=== PATIENT | male | born 1960 | race Caucasian/White ===

== ENCOUNTER → 2018-09-29 | Outpatient (CLI) | payer OTHER ==
[~2018-09-29] MED LIST: CYMBALTA60 MG PO; DOXEPIN HCL10 MG PO; FLEXERIL PO; MEDROLDOSEPACK PO; MOBIC15 MG PO; NEURONTIN 300300 M1 PO; PERCOCET 10-321 EACH PO
--- NOTE | 2018-10-12 16:38 | PAINCON ---
[address] [address] PAIN MANAGEMENT CONSULTATION Name: SHAKIRA HICKS [facility]: [facility] CHELOCecilio LeonardoCiara#: [id number] Admission: 09/29/18 Attend Phys: Sandro Randall MD Discharge: Date of : 62 Report #: [id number] THIS REPORT FOR: //name// CC: Lana Randall DATE OF SERVICE: 09/29/2018 CHIEF COMPLAINT: Constant right hip and leg pain. HISTORY OF PRESENT ILLNESS: The patient is a 57-year-old gentleman who has been referred to the pain clinic for evaluation of chronic pain. The patient states that he has been seen in the pain clinic at [facility] in the past. He has undergone a number of procedures. He states that he has undergone epidural steroid injections. They no longer provide were helpful. He was told that he has some problems in the L5-S1 disk area. He states that he has two bulging disks as well as a herniated disk. He has been having pain and discomfort, which has been problematic over the last 8 years. He has undergone radiofrequency ablation in the lower back area. He continues to have pain and was referred to a surgeon. He states that the surgeon looked at his situation and did not recommend surgery at this juncture. He stated that the pain worsened, he could consider surgery. This was about 2 years ago that he had the visit with the surgeon. He has been told that he has spinal stenosis. Finds that gabapentin and Cymbalta seemed to be helpful. He has tried Flexeril in the past, but rarely uses it. He has tried Percocet rarely uses this medication. He continues to have pain and discomfort, which he describes as stabbing in his right hip and notes that the pain is worse when he is lifting and with certain other activities. Describes it is constant, burning, shooting momentarily sharp and stabbing. Rates it as a 3/10. He has discomfort in the anterior portions of his thigh and down into the calf portions bilaterally. There is some midline discomfort as well. ALLERGIES: No known drug allergies. MEDICATIONS: Gabapentin 300 mg t.i.d., Cymbalta 60 mg daily, Flexeril 10 mg p.r.n., Percocet 08/31/2005 p.r.n. PAST MEDICAL HISTORY: Joint disease/arthritis. PAST SURGICAL HISTORY: 1. The patient has had epidural steroid injections. 2. The patient has had radiofrequency lesioning of the low back area, L4-L5 and L5-S1. REVIEW OF SYSTEMS: Hearing loss/ringing in the ears, joint pain, back pain, [place] [address] PAIN MANAGEMENT CONSULTATION Name: COMERSHAKIRA Room: [facility] ELSA Pinzon#: [id number] Admission: 09/29/18 Attend Phys: Sandro Randall MD Discharge: Date of : 62 Report #: [id number] LABORATORY DATA: No laboratory values are available at the time of our interview. PAIN CLINIC ASSESSMENT/PQRS: 1. History of osteoarthritis. The patient has some arthritic changes in the lower portion of his back. He has not been treated for rheumatoid arthritis. 2. Height 5 feet 9 inches, weight 235 pounds, BMI is 34.8. 3. Vital signs: Blood pressure 153/95, heart rate 96, respiratory rate 18, room air saturation 93%, and temperature 98.8. 4. Pain intensity 02/05. 5. Fall history: The patient has not fallen in the last 3 months. 6. Blood thinner. The patient is not on a blood thinning medication. 7. Hypertension. The patient is not being treated for hypertension. 8. Opioid therapy. The patient is not receiving an opioid on a regular basis. 9. Risk assessment tool. 10. Functional assessment tool of . 11. Tobacco: The patient denies use of tobacco. 12. Alcohol: The patient denies use of alcoholic beverages on a regular basis. PHYSICAL EXAMINATION: GENERAL: The patient is a well-developed, well-nourished white male. Appears his stated age. He is alert and oriented x 3. Affect is appropriate. Speech is fluent. HEENT: Normocephalic, atraumatic. Extraocular eye muscles intact. Sclerae nonicteric. Mucous membranes are moist. NECK: With good range of motion without adenopathy or JVD. HEART: Regular rate. ABDOMEN: Nontender. Bowel sounds present. EXTREMITIES: Upper extremity muscle strength is judged to be 5/5 for the major muscle groups in the low back. The patient has pain and discomfort in the mid back area. He has pain and discomfort radiating around into the anterior portion of his thighs bilaterally. Also, has some pain on the lateral portion of his thigh. This is on the right side. MUSCULOSKELETAL: Without significant scoliosis, kyphosis or lordosis. The patient is able to go from a sitting to a standing position without assistance. He has tenderness in the midline area in the L4-L5 and L5-S1 paravertebral areas. Dixon sign is negative. The patient notes some increased pain and discomfort with movement in the low back area in the back. There is no step-off in the lumbar area. IMPRESSION: 1. Lumbar radiculopathy with history of spinal stenosis and grade 1 spondylolisthesis. 2. Bilateral L5-S1 foraminal stenosis. 3. Chronic pain. The patient has [place] [address] PAIN MANAGEMENT CONSULTATION Name: SHAKIRA HICKS Room: [facility] ELSA BassettFlor#: [id number] Admission: 09/29/18 Attend Phys: Sandro Randall MD Discharge: Date of : 62 Report #: [id number] RECOMMENDATIONS: We discussed treatment option with the patient. We fully reviewed the medications commonly used for treating chronic pain. The patient is not taking any nonsteroidal anti-inflammatory medications. We will consider the use of Mobic. We explained that gabapentin can be helpful in certain situations. Sometimes patients will not find an improvement until the gabapentin level has been of 1800 had been reached. We will slowly increase his gabapentin medication. We also described the use of tricyclic anti-inflammatory medications. They can be helpful in pain. We will consider the doxepin. The patient will take this medication at bedtime. Hopefully, this would help with sleep as well as with pain and discomfort. At this juncture, the patient declines additional injections given that he said the last injection only lasted for a couple of days. We will continue to try medication combinations to help calm/improve his painful condition. We would like to thank you for letting us participate in his care. We hope he continues to improve. <ELECTRONICALLY SIGNED> By: Sandro Randall MD 10/12/18 [id number]. Kian Randall MD /nt
== END ==
LOC: M.PC 02:50
DX: M54.16 Radiculopathy, lumbar region (principal); M48.061 Spinal stenosis, lumbar region without neurogenic claudication; G89.29 Other chronic pain

== ENCOUNTER → 2018-10-27 | Outpatient (CLI) | payer OTHER ==
--- NOTE | ~2018-10-27 | PAINCON ---
[address] [address] PAIN MANAGEMENT CONSULTATION Name: LORYRSHAKIRA Room: [facility] ELSA BassettFlor#: [id number] Admission: 10/27/18 Attend Phys: Sandro Randall MD Discharge: Date of : 62 Report #: [id number] THIS REPORT FOR: //name// CC: Lana Randall DATE OF SERVICE: 10/27/2018 CHIEF COMPLAINT: "Pain in the front of my leg is better with the gabapentin. I am still having some problems sleeping because my hip pain." HISTORY OF PRESENT ILLNESS: The patient is a 57-year-old gentleman who has been seen in the pain clinic because of right hip and leg pain. The patient states that he has noticed an improvement in his pain. He was having pain in the anterior portion of his leg in the upper thigh as well as in the calf area. Since use of gabapentin, he is noticing improvement in this pain and discomfort. Pain is most problematic at this juncture is that in his hips. Pain in the right hip is most problematic. He has difficulty lying on it. It keeps him from sleeping. Denies any trauma to this area. He only remembers falling from a roof about 20-25 years ago. He fractured his wrist at that time, but did not have any significant problems with his hip. He does try ibuprofen p.r.n. He has had no problems with the gabapentin. He feels that he is sleeping reasonably well with use of doxepin 10 mg at bedtime. He notes that if he sits with his hips, lower than his knees in a chair or so has difficulty getting up and moving. Must move slowly. He has pain and discomfort when he exits his car, oftentimes has to lift his leg out stand using his hands to brace himself and move somewhat before he is able to proceed with walking because of the pain and discomfort. ALLERGIES: No known drug allergies. CURRENT MEDICATIONS: Gabapentin 300 mg t.i.d., Cymbalta 60 mg, Flexeril 10 mg and Percocet 10/325 p.r.n. PAIN CLINIC ASSESSMENT/PQRS: 1. History of osteoarthritis. The patient has some arthritic changes in his low back area. He has not been treated for rheumatoid arthritis. 2. Height 5 feet 9 inches, weight 238 pounds. BMI is 35.2. 3. Vital Signs: Blood pressure 149/91, heart rate 75, respiratory rate 18, room air saturation 95%, temperature 98.5. 4. Pain intensity score 1/10 at this juncture. 5. Fall history: The patient has not fallen in the last 3 months. 6. Blood thinner. The patient is not on a blood thinning medication. 7. Hypertension. The patient is not being treated for hypertension. 8. Opiate therapy. The patient is not receiving opioid [place] [address] PAIN MANAGEMENT CONSULTATION Name: SHAKIRA HICKS Room: [facility] ELSA Pinzon#: [id number] Admission: 10/27/18 Attend Phys: Sandro Randall MD Discharge: Date of : 62 Report #: [id number] 9. Risk assessment, low risk for opioid medication. 10. Functional assessment tool . 11. Tobacco: The patient denies use of tobacco. 12. Alcohol. The patient denies use of alcoholic beverages on a regular basis. PHYSICAL EXAMINATION: GENERAL: The patient is a well-developed, well-nourished white male. Appears his stated age. He is alert and oriented x 3. His affect is appropriate. Speech is fluent. HEENT: Normocephalic, atraumatic. Extraocular eye muscles intact. Sclerae nonicteric. Mucous membranes are moist. NECK: Without adenopathy or JVD. HEART: Regular rate. ABDOMEN: Nontender. Bowel sounds present. EXTREMITIES: Upper extremity muscle strength is judged to be 5/5 for the major muscle groups. The patient has some pain and discomfort in the lower portion of his back. He notes some pain into the right hip area. Standing and sitting with internal and external rotation of his hip causes pain that radiates directly into the area of the groin and into the hip area. The patient also has some pain in the anterior portion of his right calf. Overall, this is better than it had been prior to taking his medications. MUSCULOSKELETAL: Without significant scoliosis, kyphosis or lordosis. Dixon sign is negative. The patient has no step-off in the lumbar area. IMPRESSION: 1. Lumbar radiculopathy with history of spinal stenosis and grade 1 anterolisthesis. 2. Bilateral L5-S1 foraminal stenosis. 3. Chronic pain. The patient has undergone epidural steroid injections. RECOMMENDATIONS: We discussed treatment options with the patient. He has noted some improvement with use of the gabapentin medication. He is not having any side effects or mental problems with focusing. He feels that the doxepin is helping with his sleep at night. He does not have any complications from that medication. He notes that there is pain and discomfort in his left hip, which is slight and more problematic in the right hip. He is unable to lie on his right hip at night. This awakens him because of the pain and discomfort. We will have the patient undergo an x-ray of his right hip to note the changes in this area. He will be given a Medrol Dosepak. He will take this medication for the alloted number of days. Hopefully, he will find it improvement. He will also try Mobic. He will monitor his stomach for GI upset. He will return to the pain clinic. If his pain continues to be problematic and does not resolve, we would consider [place] [address] PAIN MANAGEMENT CONSULTATION Name: SHAKIRA HICKS Room: [facility]#: [id number] Admission: 10/27/18 Attend Phys: Sandro Randall MD Discharge: Date of : 62 Report #: [id number] We would like to thank you for letting us participate in his care. We hope he continues to improve. By: [id number]. Kian Randall MD /nt
== END ==
LOC: M.RAD 03:44 → M.PC 03:44
DX: M16.11 Unilateral primary osteoarthritis, right hip (principal); M47.26 Other spondylosis with radiculopathy, lumbar region; M48.07 Spinal stenosis, lumbosacral region; G89.29 Other chronic pain; Z79.899 Other long term (current) drug therapy

== ENCOUNTER → 2018-11-18 | Outpatient (CLI) | payer OTHER | LOC: M.MRI 07:00 | DX: M47.26 Other spondylosis with radiculopathy, lumbar region (principal); M51.16 Intervertebral disc disorders with radiculopathy, lumbar region; M51.27 Other intervertebral disc displacement, lumbosacral region; M48.07 Spinal stenosis, lumbosacral region; M43.17 Spondylolisthesis, lumbosacral region ==

== ENCOUNTER → 2018-12-01 | Outpatient (CLI) | payer OTHER ==
--- NOTE | ~2018-12-01 | PAINCON ---
[address] [address] PAIN MANAGEMENT CONSULTATION Name: LORYRSHAKIRA Room: [facility] Danyelle.#: [id number] Admission: Attend Phys: Sandro Randall MD Discharge: Date of : 62 Report #: [id number] THIS REPORT FOR: //name// CC: Lana Randall DATE OF SERVICE: 12/01/2018 CHIEF COMPLAINT: Pain in the back and hips. FOLLOWUP HISTORY: The patient is a 57-year-old gentleman who has been followed in the pain clinic because of pain and discomfort involving his right side. He has had pain and discomfort in the right hip as well as some pain down into his leg. Notes that overall after taking the Medrol Dosepak as well as with less activity, he has noticed an improvement in his pain. He states that he had been seen in the past because of back problems. MRI showed that he had a fracture in the pars area in the lower portion of his back. He states that he had seen an orthopedic doctor in the past. He was told that unless things got significantly worse and he lost some bowel or bladder function then probably nothing would be needed to be done. He also had an x-ray of his hip on the right side. He is told that did not show very much. Overall, the right hip has been a little bit better lately, but he still does have pain when it rises to level of a 10. No sitting and standing can be problematic. ALLERGIES: No known drug allergies. CURRENT MEDICATIONS: Flexeril 10 mg t.i.d., Cymbalta 60 mg, gabapentin 2 tablets a.m. one-half tablet afternoon and 2 tablets at bedtime, 300 mg. PAIN CLINIC/PQRS: 1. History of osteoarthritis. The patient has some arthritic changes in his low back area. He has been told that he has some problems there. He has not been treated for rheumatoid arthritis. 2. Height 5 feet 9 inches, weight 238 pounds, BMI is 35. 3. Vital signs: Blood pressure ____, heart rate 89, respiratory rate 16, room air saturation 92%, and temperature 98.4. 4. Pain intensity 12/08. 5. Fall history: The patient has not fallen in the last 3 months. 6. Blood thinner. The patient is not on a blood thinning medication. 7. Hypertension. The patient is not being treated for hypertension. 8. Opioid therapy. The patient has received opioid medications from one source and would like to have our Pain Clinic continue to provide his opioid medication. 9. Risk assessment tool, low for opioid use. 10. Functional [place] [address] PAIN MANAGEMENT CONSULTATION Name: SHAKIRA HICKS Room: [facility] Jeromy#: [id number] Admission: Attend Phys: Sandro Randall MD Discharge: Date of : 62 Report #: [id number] 11. Tobacco: The patient denies use of tobacco. 12. Alcohol: The patient denies use of alcoholic beverages on a regular basis. PHYSICAL EXAMINATION: GENERAL: The patient is a well-developed, well-nourished white male. Appears his stated age. He is alert and oriented x 3. His affect is appropriate. Speech is fluent. HEENT: Normocephalic, atraumatic. Extraocular eye muscles intact. Sclerae nonicteric. Mucous membranes are moist. NECK: Without adenopathy or JVD. HEART: Regular rate. S1, S2. ABDOMEN: Nontender. Bowel sounds present. EXTREMITIES: Upper extremity muscle strength is judged to be 5/5 for the major muscle groups in the upper extremity. The patient has pain and discomfort in the lower portion of his back, which can wax and wane. It is not very problematic today. Also had some pain in his right hip. He is having less pain and discomfort. Does note some activities that he can note some increased pain and discomfort, which can radiate down into the posterior portion of his leg down into his calf and involving his foot on the right hand side. MUSCULOSKELETAL: Without significant scoliosis, kyphosis or lordosis. Dixon's sign negative. IMPRESSION: 1. Lumbar radiculopathy with history of spinal stenosis and grade 1 anterolisthesis. 2. L5 bilateral S1 foraminal stenosis. 3. Chronic pain. The patient has undergone epidural steroid injections in the past. X-ray of the lumbar spine dated 10/27/2018. AP pelvis, two views right hip findings, mild degenerative changes are present in the lower lumbar spine and hip joints. Spina bifida occulta is present at the L5 level. No evidence of fracture or subluxation or dislocation. Pelvis and hip are normal. 4. Chronic degenerative changes in the lumbar spine, right hip. No evidence of acute hip fracture or dislocation. 5. MRI of lumbar spine dated 11/18/2018. L1-L2 disk space narrowing and disk desiccation with circumferential disk bulging and posterior annular tear. There is effacement of the ventral thecal sac with narrowing of the central canal to 10 mm. There is bilateral neural foraminal narrowing, right greater than left with effacement of the undersurface of both exiting L1 nerve roots. Mild bilateral degenerative facet changes are present. 6. L2-L3 minimal foraminal disk bulging bilaterally and mild effacement of the ventral surface of the neural foramen. The facet joints are unremarkable. There is no central canal stenosis. 7. L3-L4 disk space narrowing and disk desiccation. There is circumferential disk bulging. Mild bilateral neural foraminal narrowing is present with mild effacement of the undersurface of both exiting the L3 nerve roots. The facet joints [place] [address] PAIN MANAGEMENT CONSULTATION Name: COMER,SHAKIRA LISANDRA [id number] Admission: Attend Phys: Sandro Randall MD Discharge: Date of : 62 Report #: [id number] 8. L4-L5 bilateral hypertrophic degenerative facet disease, right greater than left. There is disk space narrowing and disk desiccation. There is posterior disk bulging, which effaces the ventral thecal sac. Does not cause central canal stenosis. The facet arthrosis and disk bulging caused moderate right-sided neural foraminal stenosis with effacement of the anterior inferior and posterior inferior right L4 nerve root. 9. L5-S1, the disk space is narrowed and disk desiccation with chronic anterolisthesis measuring 7.5 mm. There is bilateral post-pars interarticular fractures without acute marrow edema. There is posterior disk bulging, which extends into the neural foramen bilaterally. There is severe bilateral neural foraminal stenosis with effacement and flattening of both L5 nerve roots. The paraspinous musculature is preserved. 10. 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 This in conjunction with posterior disk bulging causes severe bilateral neural foraminal stenosis and flattening/effacement of the L5 nerve roots. RECOMMENDATIONS: We discussed treatment options with the patient. The patient's MRI was reviewed with him. The findings of the x-ray of the pelvis were renewed with him. Again, we discussed the treatment options. At this juncture, the patient feels that things are 1/10. He feels that the oxycodone medication can be beneficial. He states he no longer goes to his doctor at ____ [facility]. He would like to have the medications of Percocet dispensed from our office. We will have the patient sign a contract with the [facility] indicating that he will get his medications from [facility]. The patient is in agreement with this. A script for his medications has been written. They are oxycodone 10/325 one p.o. every day. The patient did use doxepin in the past, but is no longer taking that medication. A script for gabapentin has been written. The patient has used meloxicam in the past, but is not taking that medication at this time. We would like to thank you for letting us participate in his care. We hope he continues to improve. By: [id number]. Kian Randall MD /nt
== END ==
LOC: M.PC 08:50
DX: M47.26 Other spondylosis with radiculopathy, lumbar region (principal); M51.16 Intervertebral disc disorders with radiculopathy, lumbar region; G89.29 Other chronic pain; M48.07 Spinal stenosis, lumbosacral region; M43.17 Spondylolisthesis, lumbosacral region

== ENCOUNTER → 2018-12-29 | Outpatient (CLI) | payer OTHER ==
[~2018-12-29] MED LIST changes: +CYMBALTA30 MG PO
--- NOTE | ~2018-12-29 | PAINCON ---
[address] [address] PAIN MANAGEMENT CONSULTATION Name: COMERSHAKIRA Room: [facility] ELSA PattersonCiara#: [id number] Admission: 12/29/18 Attend Phys: Sandro Randall MD Discharge: Date of : 62 Report #: [id number] THIS REPORT FOR: //name// CC: Lnaa Randall DATE OF SERVICE: 12/29/2018 CHIEF COMPLAINT: Here for medication and the pain is improved in my back and in the right hip. HISTORY: The patient is a 58-year-old gentleman who has been followed in the pain clinic because of pain and discomfort, which he has been experiencing. It primarily involved his right side. He had some discomfort which radiated down into his hip as well as along the lateral portion of his leg. Overall, he feels that the things have improved. He has found that the Medrol Dosepak was beneficial. He feels that his current medication regimen of Flexeril, Cymbalta and gabapentin are beneficial. Does take oxycodone only when necessary. Overall, he feels that things are going reasonably well. As you may recall, he had an MRI, which showed a fracture in the pars area of the lower portion of his back. Notes that the pain is worse in the past, rising to a level of 10. At this juncture, he rates his pain as a 1/10. ALLERGIES: No known drug allergies. MEDICATIONS: Flexeril 10 mg 1 p.o. t.i.d., Cymbalta 60 mg, gabapentin 2 tablets a.m. one tablet afternoon, 2 tablets at bedtime of 300 mg, oxycodone 10/325 one p.o. daily. PAIN CLINIC ASSESSMENT/PQRS: 1. History of osteoarthritis. The patient has some arthritic changes in his low back area. He has not been treated for rheumatoid arthritis. 2. Height 5 feet 9 inches, weight 225 pounds, BMI is 33. 3. Vital signs: Blood pressure 148/78, heart rate 73, respiratory rate 16, room air saturation is 94%, temperature 98.5. 4. Pain intensity 12/08. 5. Fall history: The patient has not fallen in the last 3 months. 6. Blood thinner. The patient is not on a blood thinning medication. 7. Hypertension. The patient has not been treated for hypertension. 8. Opioids greater than 6 weeks. The patient receives medication from one source, the pain clinic. 9. Functional assessment tool. 10. Recreational drug use. The patient denies use of recreational drugs. 11. Tobacco: The patient denies use of tobacco. 12. Alcohol. The patient drinks alcoholic beverages [place] [address] PAIN MANAGEMENT CONSULTATION Name: SHAKIRA HICKS [id number] Admission: 12/29/18 Attend Phys: Sandro Randall MD Discharge: Date of : 62 Report #: [id number] PHYSICAL EXAMINATION: GENERAL: The patient is a well-developed, well-nourished white male. Appears his stated age. He is alert and oriented x 3. His affect is appropriate. Speech is fluent. HEENT: Normocephalic, atraumatic. Extraocular eye muscles intact. Sclerae nonicteric. Mucous membranes are moist. NECK: Without adenopathy or JVD. HEART: Regular rate. S1, S2. ABDOMEN: Nontender. Bowel sounds present. EXTREMITIES: Upper extremity muscle strength is judged to be 5/5 for the major muscle groups in the upper extremity. The patient is without significant scoliosis, kyphosis or lordosis. Has an improved right hip pain. Has some focal pain in this area, but less pain radiating down in the lateral portion of his thigh. Notes muscle strength as a 5/5 for the major muscle groups in the lower extremity. IMPRESSION: 1. History of lumbar radiculopathy with spinal stenosis, grade 1 anterolisthesis. 2. L5 bilateral S1 foraminal stenosis. 3. Chronic pain. The patient has undergone epidural steroid injection in the past and gleaned benefits from these. 4. Chronic degenerative changes in the lumbar spine and the right hip. No evidence of fracture ____. 5. MRI on 11/18/2018, L1-2 disk space narrowing and disk desiccation with circumferential disk bulge and posterior annular tear. There is effacement of the ventral thecal sac with narrowing of the central canal to 10 mm. RECOMMENDATIONS: We discussed treatment options with the patient. Risks and benefits of opioid use have been discussed. Prolonged use of opioid medications can cause problems with dependence as well as it can lose its efficacy secondary to development of tolerance. Overall, the patient feels that things are going reasonably well. He feels that his medications of gabapentin, oxycodone, and Cymbalta are beneficial. He would like to continue with his current program. He is not having any problem with the medications. He is able to think clearly. Keeps his medications in a guarded area. He will follow up in the future as needed. A script for his medications to be renewed have been issued for gabapentin 300 mg, total of 150 tablets, oxycodone 30 mg and Cymbalta 60 mg daily. By: [id number]. Kian Randall MD /colleen
== END ==
LOC: M.PC 05:10
DX: M47.896 Other spondylosis, lumbar region (principal); M48.07 Spinal stenosis, lumbosacral region; G89.29 Other chronic pain; M16.11 Unilateral primary osteoarthritis, right hip; Z79.899 Other long term (current) drug therapy

== ENCOUNTER → 2019-02-23 | Outpatient (CLI) | payer OTHER ==
--- NOTE | ~2019-02-23 | PAINCON ---
[facility] [address] [place] [address] PAIN MANAGEMENT CONSULTATION Name: COMERSHAKIRA Room: [facility] ELSA BassettFlor#: [id number] Admission: 02/23/19 Attend Phys: Sandro Randall MD Discharge: Date of : 62 Report #: [id number] THIS REPORT FOR: //name// CC: Lana Randall DATE OF SERVICE: 02/23/2019 PRIMARY CARE PHYSICIAN: Lana Garcia MD CHIEF COMPLAINT: History of back pain. Things are going pretty well. HISTORY: The patient is a 58-year-old gentleman who has been followed in the pain clinic because of back and leg pain. States that occasionally he has pain in his right and left hip. Right is most problematic. Occasional left hip is problematic. Notes some occasional sharp shooting pains, which resolved relatively quickly. Has some low back pain as well. He overall feels things are going reasonably well. Rates his pain as a 1/10. Continues to stay reasonably active. He feels that Flexeril, Cymbalta, gabapentin, and his oxycodone are beneficial. He is taking the medication as prescribed. He keeps them in a locked area. ALLERGIES: No known drug allergies. CURRENT MEDICATIONS: Flexeril 10 mg t.i.d., Cymbalta 60 mg, gabapentin 2 tablets a.m., one tablet afternoon, 2 tablets at bedtime of 300 mg tablets, oxycodone 10/325 one p.o. daily. PAIN CLINIC ASSESSMENT/PQRS: 1. History of osteoarthritis. The patient has some osteoarthritic changes in his low back area. He has not been treated for rheumatoid arthritis. 2. Height 5 feet 9 inches, weight 217 pounds, BMI is 32.5. 3. Blood pressure 134/91, heart rate 81, respiratory rate 16, room air saturation 92%, temperature 98.2. 4. Pain intensity 12/08. 5. Fall history. The patient has not fallen in the last 3 months. 6. Blood thinner. The patient is not on a blood thinning medication. 7. Hypertension. The patient has not been treated for hypertension. 8. Opioids greater than 6 weeks. The patient received medication from one source, pain clinic. 9. Functional assessment tool, low for opioid use. 10. Recreational drug use. The patient denies use of recreational drugs. 11. Tobacco: The patient denies use of tobacco. 12. The patient stopped smoking about 15 years ago. 13. Alcohol. The [place] [address] PAIN MANAGEMENT CONSULTATION Name: SHAKIRA HICKS [id number] Admission: 02/23/19 Attend Phys: Sandro Randall MD Discharge: Date of : 62 Report #: [id number] PHYSICAL EXAMINATION: GENERAL: The patient is a well-developed, well-nourished white male. Appears his stated age. He is alert and oriented x 3. His affect is appropriate. Speech is fluent. HEENT: Normocephalic, atraumatic. Extraocular eye muscles intact. Sclerae nonicteric. Mucous membranes are moist. NECK: Without adenopathy or JVD. HEART: Regular rate. S1, S2. ABDOMEN: Nontender. Bowel sounds present. EXTREMITIES: Upper extremity muscle strength is judged to be 5/5 for the major muscle groups in the upper extremity. The patient without significant scoliosis, kyphosis or lordosis. Has some right-sided hip pain. Has some left-sided hip pain on occasion. Notes that overall things are going reasonably well. Muscle strength in the lower extremities 5/5. IMPRESSION: 1. History of lumbar radiculopathy with spinal stenosis, grade 1 anterolisthesis. 2. L5 bilateral S1 foraminal stenosis. 3. Chronic pain. The patient has undergone epidural steroid injections and gleaned benefit from these. 4. Chronic degenerative changes of lumbar spine, right hip. 5. MRI dated 11/18/2018 L2 disk space narrowing and disk decussation with circumferential disk bulge and annular tear. There is effacement of the ventral thecal sac with narrowing of the central canal to 10 mm. RECOMMENDATIONS: We discussed treatment options with the patient. Overall, the patient feels that things are going reasonably well. This medication is working well. He does not have any problems with his bowel or bladder. He would like to continue his medications. A script for his medications has been renewed. He will follow up in the future as needed. The patient will continue with oxycodone 10 one p.o. daily, gabapentin 300 mg as described and Cymbalta. The patient to use Flexeril 10 mg 1 p.o. p.r.n. for muscle spasms. By: [id number]. Kian Randall MD /ANDREA
== END ==
LOC: M.PC 00:31
DX: M47.26 Other spondylosis with radiculopathy, lumbar region (principal); M51.16 Intervertebral disc disorders with radiculopathy, lumbar region; M48.07 Spinal stenosis, lumbosacral region; G89.29 Other chronic pain; M16.11 Unilateral primary osteoarthritis, right hip